=== PATIENT | female | born 1955 | race Caucasian/White ===

== ENCOUNTER 2020-11-01 13:15 | Outpatient (CLI) | payer MEDICARE, OTHER, SELFPAY ==
--- NOTE | 2020-11-01 13:23 | MM_ITS ---
WS: [id number] BILATERAL DIGITAL SCREENING MAMMOGRAPHY WITH CAD CLINICAL INFORMATION: SCREENING HISTORY: Screening mammogram. No current complaints. COMPARISON: TECHNIQUE: Bilateral CC and MLO views. FINDINGS: Scattered fibroglandular densities bilaterally. No suspicious focal mass, asymmetry, calcifications, or architectural distortion. No evidence of malignancy. Right axillary tail intramammary lymph nodes. A few punctate calcifications. MM/[place] [id number] IMPRESSION: BI-RADS: 2-Benign FOLLOW UP: 1 Year Follow-up Recommend return to annual screening mammography.
== END 2020-11-01 13:16 | disposition home or self-care (01) ==
LOC: RADSHAW 13:21
PROVIDERS: PCP Internal Medicine; Visit Provider Internal Medicine
DX: Z12.31 Encounter for screening mammogram for malignant neoplasm of breast (principal)
CPT/HCPCS: 77067

== ENCOUNTER 2022-01-07 11:10 | Outpatient (CLI) | payer MEDICARE, SELFPAY ==
--- NOTE | 2022-01-07 11:19 | MM_ITS ---
WS: [id number] SCREENING DIGITAL BREAST TOMOSYNTHESIS MAMMOGRAM WITH CAD HISTORY: SCREENING COMPARISON: 01/31/2021 and 08/23/2018 Bilateral CC and MLO with tomosynthesis views submitted. Synthetic mammography reviewed. Computer aid ed detection analyzed. Breast composition: There are scattered areas of fibroglandular density. No suspicious masses, microc alcifications or architectural distortion. MM/[place] [id number] IMPRESSION: BI-RADS: 1-Negative FOLLOW UP: 1 Year Follow-up
== END 2022-01-07 11:11 | disposition home or self-care (01) ==
LOC: RAD 11:14
PROVIDERS: PCP Internal Medicine; Visit Provider Internal Medicine
DX: Z12.31 Encounter for screening mammogram for malignant neoplasm of breast (principal)
CPT/HCPCS: 77063; 77067

== ENCOUNTER 2022-03-06 14:35 | Outpatient (CLI) | payer MEDICARE, SELFPAY ==
--- NOTE | 2022-03-06 14:41 | XR_ITS ---
WS: [email or web address] SCREENING DEXA SCAN [employer] CLINICAL INFORMATION: POSTMENOPAUSAL COMPARISON: None. FINDINGS: The L1-L4 bone mineral density measures 1.184 g/cm2. This corresponds to a T score score of 0.0 and Z score of 1.2. Left femoral neck bone mineral density measures 1.206 g/cm2. This corresponds to a T score of 1.6 and Z score of 2.6. Right femoral neck bone mineral density measures 1.207 g/cm2. This corresponds to a T score 1.6of and Z score of 2.7. Mean femoral neck bone mineral density measures 1.207 g/cm2. This corresponds to a T score of 1.6 and Z score of 2.7. XR/XR DEXA axial skeleton* [id number] IMPRESSION: Normal bone mineralization. Patient's FRAX calculated 10 year probability for major osteoporotic fracture i s 5.9 % and osteoporotic hip fracture is 0.1%.
== END 2022-03-06 14:36 | disposition home or self-care (01) ==
LOC: RAD 14:36
PROVIDERS: PCP Internal Medicine; Visit Provider Internal Medicine
DX: Z78.0 Asymptomatic menopausal state (principal)
CPT/HCPCS: 77080

== ENCOUNTER 2023-05-14 08:05 | Outpatient (CLI) | payer MEDICARE, OTHER, SELFPAY ==
--- NOTE | 2023-05-14 08:13 | MM_ITS ---
WS: [id number] BILATERAL SCREENING DIGITAL TOMOSYNTHESIS MAMMOGRAM WITH CAD HISTORY: SCREENING COMPARISON: 01/07/2022 and 11/01/2020 Bilateral CC and MLO views with tomosynthesis and synthetic mammography submitted. Computer aided det ection analyzed. Breast composition: There are scattered areas of fibroglandular density. No suspicious masses, microc alcifications or architectural distortion. Lymph node in the upper outer quadrant of the RIGHT breast . IMPRESSION: MM/[place] [id number] BI-RADS: 2-Benign FOLLOW UP: 1 Year Follow-up
== END 2023-05-14 08:06 | disposition home or self-care (01) ==
LOC: RAD 08:06
PROVIDERS: PCP Internal Medicine; Visit Provider Internal Medicine
DX: Z12.31 Encounter for screening mammogram for malignant neoplasm of breast (principal)
CPT/HCPCS: 77063; 77067

== ENCOUNTER 2024-11-07 07:05 | Outpatient (CLI) | payer MEDICARE, OTHER, SELFPAY ==
--- NOTE | 2024-11-07 07:16 | CT_ITS ---
WS: [id number] CT NECK WITH CONTRAST HISTORY: SIALOADENITIS TECHNIQUE: Contiguous 2 mm axial images are performed through the neck with intravenous contrast. Sagittal and coronal reformats are also submitted. All CT scans at [facility] use at least one of these dose optimization techniques: automated exposure control; mA and/or kV adjustment per patient size (includes targeted exams where dose is matched to clinical indication); or iterative reconstruction. CONTRAST: CONTRAST: Omnipaque 350; 100 mL IV. DLP: 1097.70 mGy.cm COMPARISON: None available. Multiloculated cystic mass centered along the midline of the neck at the level of the hyoid bone. There are multiple small loculations without significant enhancement. Mass extends both superficial and deep to the hyoid bone into the visceral space. Transverse diameter of the largest component 3.5 cm, AP by 2.2 cm in length of 4.2 cm. No additional cystic or solid masses are identified. Tongue base is normal. Normal appearance of the parotid and submandibular glands. Normal thyroid. No cervical chain lymphadenopathy. There are a few small cervical chain lymph nodes which are normal. No osseous abnormalities. Imaging extending into the skull base demonstrates an intensely enhancing mass in the RIGHT posterior fossa extending along the tentorium. Surface of the mass is nodular and there may be a small amount of surrounding edema. This intensely enhancing mass extends to the tentorium and also may be in contact with the dural venous sinus. This mass measures 2.7 x 2.7 x 1.9 cm. Visualized paranasal sinuses and mastoid air cells are normal. Lung apices are clear. CT/CT neck w con* [id number] IMPRESSION: 1. Multiloculated cystic mass along the midline of the neck at the level of th e hyoid measures 3.5 x 2.2 x 4.2 cm. 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 Recommend evaluation by ENT. 2. There is an additional intensely enhancing mass in the RIGHT posterior kenyatta a abutting the tentorium. Mass is slightly lobulated with a small amount of adj acent edema. Mass measures 2.7 x 2.7 x 1.[address] performed on t he same day.
[2024-11-07 07:52] LABS: Blood Urea Nitrogen 16 mg/dL (8-23)
--- NOTE | 2024-11-07 08:09 | CT_ITS ---
WS: [email or web address] CT HEAD with contrast HISTORY: FOLLOW TO CT NECK IMAGES TECHNIQUE: Contiguous axial imaging performed through the brain. Bone and soft tissue windows. All CT scans at [facility] use at least one of these dose optimization techniques: automated exposure control; mA and/or kV adjustment per patient size (includes targeted exams where dose is matched to clinical indication); or iterative reconstruction. DLP: 1097.0 mGy COMPARISON: Neck CT 11/07/2024. Contrast: Omnipaque 350; 100 cc IV. Large intensely enhancing mass centered in the RIGHT posterior fossa with slightly lobulated margins. There are a few areas of more intense attenuation which is probably peripheral calcification. Mass measures 2.6 x 3.0 x 2.1 cm (TRV x AP x CC). There may be a small amount of surrounding edema. Mass abuts the tentorium and there does appear to be a dural tail. Mass is also closely associated with the RIGHT transverse sinus. There is mild mass effect on the midline structures and slight effacement of the fourth ventricle. Very mild atrophy and small vessel disease. No prior infarct. No additional enhancing masses. Ventricles: Normal size with no hydrocephalus. Paranasal sinuses: As visualized are clear. Mastoid air cells: Well pneumatized. Calvarium and scalp: Skull is intact with no soft tissue edema or swelling. CT/CT head w con [id number] IMPRESSION: 1. Intensely enhancing mass centered in the RIGHT cerebellum abutting the tent orium and approaching the dural venous sinus. Mass measures 2.6 x 3.0 x 2.1 cm. 2. There is a small amount of edema surrounding the mass and slight effacement of the fourth ventricle. No hydrocephalus. 3. Mass contains peripheral calcifications and this is probably a meningioma b ut needs to be further evaluated. Differential includes meningioma, vascular ma lformation or metastatic disease versus primary tumor. Recommend follow-up MRI brain with contrast and MR angiogram [facility] [place]. 4. Neurosurgical evaluation should also be considered as there is slight mass effect upon the RIGHT lateral fourth ventricle although no obstruction at this time.
[2024-11-07] MEDS: iohexol 350 mg/mL 500 mL Btl (per mL) IV (08:30)
== END 2024-11-07 07:06 | disposition home or self-care (01) ==
PROVIDERS: Radiology Neuroradiology; PCP Electrodiagnostic Medicine; Visit Provider Electrodiagnostic Medicine
DX: K11.20 Sialoadenitis, unspecified (principal); R93.0 Abnormal findings on diagnostic imaging of skull and head, not elsewhere classified; G31.89 Other specified degenerative diseases of nervous system; R93.89 Abnormal findings on diagnostic imaging of other specified body structures; R59.0 Localized enlarged lymph nodes
CPT/HCPCS: 70460; 70491; 82565; 84520

== ENCOUNTER 2024-11-15 11:07 | Outpatient (CLI) | payer MEDICARE, OTHER, SELFPAY ==
--- NOTE | 2024-11-15 | MM_ITS ---
WS: [email or web address] BILATERAL 3D TOMOSYNTHESIS DIGITAL SCREENING MAMMOGRAPHY WITH CAD CLINICAL INFORMATION: ANNUAL SCREENING HISTORY: Screening mammogram. No current complaints. COMPARISON: None. TECHNIQUE: Bilateral CC and MLO views. FINDINGS: Scattered fibroglandular densities bilaterally. No suspicious focal mass, asymmetry, calcifications, or architectural distortion. No evidence of malignancy. Lucent centered calcification RIGHT breast. MM/MM scr BI tomosynthesis [id number] IMPRESSION: DENSITY: There are scattered areas of fibroglandular density. BI-RADS: 2 - Benign. FOLLOW UP: 1 Year Follow-up Recommend return to annual screening mammography.
--- NOTE | 2024-11-15 11:13 | USCV_ITS ---
Yee Ninasami Age: 69 Gender: F : 1955 Exam Date: 11/15/2024 11:47 Ordering Phys: Bhavesh Braga DO Technologist: Exam Location: [facility] [place] Indication: cp sob BP: 117 / 75 HR: 68 Rhythm: Sinus Technical Quality: Adequate MEASUREMENTS (Male / Female) Normal Values 2D ECHO LV Diastolic Diameter PLAX 3.9 cm 4.2 - 5.9 / 3.9 - 5.3 cm IVS Diastolic Thickness 1.0 cm 0.6 - 1.0 / 0.6 - 0.9 cm IVS Systolic Thickness 1.5 cm LVPW Diastolic Thickness 1.1 cm 0.6 - 1.0 / 0.6 - 0.9 cm LVPW Systolic Thickness 1.4 cm LVOT Diameter 2.0 cm LV Ejection Fraction 2D Teich 69.9 % LV Ejection Fraction MOD 4C 67.1 % LV Ejection Fraction MOD 2C 72.2 % LV Ejection Fraction 2C AL 73.0 % LA Diameter 3.0 cm RA Systolic Volume 4C AL 29.6 ml RA Systolic Volume 4C MOD 29.2 ml LA Sys Volume AL 60.2 cm cubed LA Sys Volume Index AL 31.2 cm cubed/m squared Aorta at Sinotubular Diameter 2.8 cm IVC Diameter 1.9 cm M-MODE LV Ejection Fraction MM Teich 63.6 % IVS Diastolic Thickness MM 1.3 cm 0.6 - 1.0 / 0.6 - 0.9 cm IVS Systolic Thickness MM 1.7 cm LVPW Diastolic Thickness MM 1.7 cm 0.6 - 1.0 / 0.6 - 0.9 cm LVPW Systolic Thickness MM 2.5 cm LA Ao Ratio MM 1.4 AV Cusp Separation MM 2.6 cm DOPPLER AV Peak Velocity 108.3 cm/s LVOT Peak Velocity 67.0 cm/s AV Area Cont Eq vti 2.3 cm squared AV Area Cont Eq pk 2.0 cm squared MV Peak Velocity 74.0 cm/s MV Area PHT 3.2 cm squared Mitral E to A Ratio 0.9 TR Peak Velocity 238.0 cm/s TR Peak Gradient 22.7 mmHg TV Peak E Velocity 104.0 cm/s PV Peak Velocity 91.0 cm/s FINDINGS Left Ventricle Normal left ventricular size, systolic function and wall thickness, with no regional wall motion abnormalities. Left ventricular ejection fraction is estimated at 60 %. Grade I/IV diastolic dysfunction (abnormal relaxation filling pattern), normal to mildly elevated filling pressures. Right Ventricle The right ventricle is normal in size and function. Right Atrium The right atrium is normal in size. Left Atrium The left atrium is normal in size. Mitral Valve Mildly thickened mitral valve. No mitral valve stenosis. Mild mitral valve regurgitation. Aortic Valve Mild aortic valve calcification. No aortic valve stenosis. Trace aortic valve regurgitation. Tricuspid Valve Trace tricuspid valve regurgitation. Pulmonic Valve Structurally normal pulmonic valve without significant stenosis. There is no pulmonic regurgitation. Pericardium Normal pericardium without effusion. Aorta Normal ascending aorta dimension. IVC The inferior vena cava appears normal. CONCLUSIONS Normal left ventricular size, systolic function and wall thickness, with no regional wall motion abnormalities. Left ventricular ejection fraction is estimated at 60 %. Grade I/IV diastolic dysfunction (abnormal relaxation filling pattern), normal to mildly elevated filling pressure Mildly thickened mitral valve. No mitral valve stenosis. Mild mitral valve regurgitation. Mild aortic valve calcification. No aortic valve stenosis. Trace aortic valve regurgitation. There is no pericardial effusion. Right atrial pressure is around 5 mm of mercury. Tyron Umana MD (Electronically Signed) Final Date: 30 Nov 2024 19:33 S
== END 2024-11-15 11:08 | disposition home or self-care (01) ==
LOC: RAD 11:08
PROVIDERS: PCP Electrodiagnostic Medicine; Visit Provider Electrodiagnostic Medicine
DX: Z12.31 Encounter for screening mammogram for malignant neoplasm of breast (principal); R01.1 Cardiac murmur, unspecified; R92.323 Mammographic fibroglandular density, bilateral breasts; R92.1 Mammographic calcification found on diagnostic imaging of breast; R93.1 Abnormal findings on diagnostic imaging of heart and coronary circulation; I34.0 Nonrheumatic mitral (valve) insufficiency; I35.8 Other nonrheumatic aortic valve disorders
CPT/HCPCS: 77063; 77067; 93306